=== PATIENT | female | born 1965 | race Caucasian/White ===

== ENCOUNTER 2016-09-10 17:11 | Emergency (ER) | payer OTHER ==
--- NOTE | 2016-09-10 18:36 | ED NURSING NOTES ---
Clinical Report - Nurses [facility] [address] [place] [address] 09/10/2016 17:14 Patient: JACLYN LAMAR TRIAGE Triage time 1722. Acuity: LEVEL 4. Chief Complaint: INJURY TO THE LEFT HIP. ALEX COMA SCORE: Alex Coma Scale: 15- eyes open spontaneously (4); best verbal response- oriented x 4 (5); best motor response- obeys commands (6). --17:28 Diane Gonzales R.N. 17:22 09/10/16. BP: 130/95. HR: 98. RR: 20 (unlabored). O2 saturation: 99% on room air. Temp: 97.7 F (oral). Pain level now: 05/25. --17:28 Diane Gonzales R.N. Weight: 68 kg stated. Height/Length: 66 inches Per Patient. BMI: 24.2. --17:21 Diane Gonzales R.N. Medications Gabapentin Oral. --17:26 Diane Gonzales R.N. Allergies Sulfa Antibiotics. --17:27 Diane Gonzales R.N. History Arrived by private vehicle. Historian: patient. Accompanied by family. Primary physician ([facility] - Terri Baldwin). ( pt c/o laceration to left hip. pt states she fell on to stained glass. pt unsure if glass in laceration.). This occurred today. Occurred at friend's house. She sustained a laceration from a fall (broke stained glass). 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 PAST MEDICAL HX: Tetanus status: up-to-date. SOCIAL HX: Never smoker. Alcohol use. No drug use. ABUSE ASSESSMENT: No report of abuse. FALL RISK ASSESSMENT: Fall risk assessment completed. No fall risk identified. NUTRITIONAL RISK ASSESSMENT: The nutritional risk assessment revealed no deficiencies. FUNCTIONAL ASSESSMENT: Functional assessment: no impairments noted. LEARNING NEEDS ASSESSMENT: The learning needs assessment revealed no barriers. SKIN INTEGRITY ASSESSMENT: Skin integrity risk assessment completed. No skin integrity risk identified. --17:28 Diane Gonzales R.N. ADDITIONAL SURGERIES: 3 c-sections. --17:27 Diane Gonzales R.N. Interventions ID band on patient. To treatment room. --17:28 Diane Gonzales R.N. PHYSICAL ASSESSMENT Ambulatory to room. GENERAL / NEURO / PSYCH: Oriented X 4. Alert. Appears in no acute distress. Appears in pain and anxious. EXTREMITIES: Capillary refill is less than 2 seconds in the extremities. Extremity pulses are within normal limits. Extremities exhibit normal ROM. Normal gait. Left hip: 3.0 cm laceration of the lateral aspect of the hip. SKIN: Skin is warm but moist. She has multiple abrasions on the left hip. --17:34 Diane Gonzales R.N. NURSING PROGRESS NOTES Patient gowned. Two patient identifiers checked. Call light placed in reach. Side rails up x 1. Bed placed in lowest position. Brakes of bed on. Patient ready for evaluation. --17:28 Diane Gonzales R.N. ( 1907: Dressing wound: bacitracin applied and secured with latex free big band-aid). --19:15 Albertina Bolton. DISPOSITION / DISCHARGE Departure time: 1910. Condition at departure: improved. No learning barriers present. Discharge instructions provided and reviewed with the patient. Patient verbalized understanding. Written instructions provided in Nauruan. The patient was discharged by the physician fish hatchery assistant. She was discharged home and accompanied by middle school band teacher. She left the Emergency Department ambulatory and via private vehicle. Embroidery Operator driving. Medication list reviewed and validated with the patient. --19:46 Diane Gonzales R.N. 19:11 09/10/16. BP: 108/67. HR: 86. RR: 18 (unlabored). O2 saturation: 99% on room air. Temp: deferred. Pain level now: 05/25. --19:46 Diane Gonzales R.N. Locked/Released at 09/10/2016 19:46 by Diane Gonzales R.N.
--- NOTE | 2016-09-10 18:36 | ED CLINICAL REPORT ---
Clinical Report - Physicians/Mid Levels [facility] [address] [place] [address] 09/10/2016 17:14 [id number] Time Seen: 19:10 Sep 10 2016. Arrived- By private vehicle. Historian- patient. HISTORY OF PRESENT ILLNESS Chief Complaint: Injury to right leg. The injury happened last night. Occurred at home. The patient sustained a crush injury. Patient is experiencing mild pain. Patient denies injury to the head or neck. (bout 15 hours prior to arrival, patient reports stumbling and falling onto stained glass. Patient reports no prior injuries of the left thigh. Reports she has been ambulatory. Denies any bleeding from the area.). REVIEW OF SYSTEMS The patient has no pain on weight bearing. All systems otherwise negative, except as recorded above. PAST HISTORY The patient has had a prior injury to the same area. Tetanus immunization status is up-to-date. SOCIAL HISTORY Never smoker. Alcohol use. No drug use. ADDITIONAL NOTES The nursing notes have been reviewed. PHYSICAL EXAM Vital Signs: 09/10/2016 17:22 BP: 130/95. HR: 98. RR: 20. O2 saturation: 99%. Temp: 97.7 F. Pain level now: 2/10. Head: Head atraumatic. ENT: Ears normal. CVS: Normal heart rate and rhythm. Heart sounds normal. Respiratory: No respiratory distress. Breath sounds normal. No chest wall injury. Abdomen: Soft. Skin: Skin warm. Extremities: Left hip. No tenderness or laceration. Left thigh: mild tenderness and 3.0 cm laceration located in the lateral aspect of mid thigh. SEE LACERATION PROCEDURE NOTE #1. Neurovascular intact distally. No ecchymosis, puncture wound, foreign body or deformity. Left knee. No tenderness or swelling. Lower extremity exam otherwise negative. Gait: Normal gait. Neuro, Vascular and Tendons: Vascular status intact. Capillary refill not prolonged. Motor intact. No functional tendon deficit. Neuro: Oriented X 3. PROGRESS AND PROCEDURES Laceration Repair: Time: 2016. Location: right thigh. Time-out completed immediately before the procedure. Length: 3. Complexity: simple (local anesthesia used and sutured). Wound depth/shape- curved and involving fascia. Wound is clean. No sensory deficit distally. Local anesthesia provided using 1% lidocaine with epi. Wound explored and cleansed. Subcutaneous closure: interrupted 4-0 (5 sutures). Post-procedure: she is stable and there are no complications. Bleeding is controlled and neuro-vascular status is intact distal to the wound. Dressing applied. Course of Care: Patient with laceration full-thickness curved in nature that still appears well despite being sustained yesterday. Patient with no fevers or drainage or erythema surrounding the laceration. Patient stable. Tolerated procedure well. Patient is stable. Disposition: Discharged. Condition: good. CLINICAL IMPRESSION Single deep laceration to the left lower leg.Treatment of laceration not delayed. No infection or foreign body present. INSTRUCTIONS Apply ice. Protect wound and keep wound area clean. Apply bacitracin twice daily. Sutures should be removed in ten days. OTC Medications: Take OTC medications according to label instructions. Available over the counter. Acetaminophen (available over the counter): take according to label instructions. Motrin (available over the counter): take according to label instructions. Follow-up: Follow up with your doctor in ten days. (Electronically signed by Mial Gordillo P.A.-C 09/10/2016 19:44)
--- NOTE | 2016-09-10 18:36 | ED CLINICAL REPORT ---
Clinical Report - Physicians/Mid Levels [facility] [address] [place] [address] 09/10/2016 17:14 [id number] Time Seen: 19:10 Sep 10 2016. Arrived- By private vehicle. Historian- patient. HISTORY OF PRESENT ILLNESS Chief Complaint: Injury to right leg. The injury happened last night. Occurred at home. The patient sustained a crush injury. Patient is experiencing mild pain. Patient denies injury to the head or neck. (bout 15 hours prior to arrival, patient reports stumbling and falling onto stained glass. Patient reports no prior injuries of the left thigh. Reports she has been ambulatory. Denies any bleeding from the area.). REVIEW OF SYSTEMS The patient has no pain on weight bearing. All systems otherwise negative, except as recorded above. PAST HISTORY The patient has had a prior injury to the same area. Tetanus immunization status is up-to-date. SOCIAL HISTORY Never smoker. Alcohol use. No drug use. ADDITIONAL NOTES The nursing notes have been reviewed. PHYSICAL EXAM Vital Signs: 09/10/2016 17:22 BP: 130/95. HR: 98. RR: 20. O2 saturation: 99%. Temp: 97.7 F. Pain level now: 2/10. Head: Head atraumatic. ENT: Ears normal. CVS: Normal heart rate and rhythm. Heart sounds normal. Respiratory: No respiratory distress. Breath sounds normal. No chest wall injury. Abdomen: Soft. Skin: Skin warm. Extremities: Left hip. No tenderness or laceration. Left thigh: mild tenderness and 3.0 cm laceration located in the lateral aspect of mid thigh. SEE LACERATION PROCEDURE NOTE #1. Neurovascular intact distally. No ecchymosis, puncture wound, foreign body or deformity. Left knee. No tenderness or swelling. Lower extremity exam otherwise negative. Gait: Normal gait. Neuro, Vascular and Tendons: Vascular status intact. Capillary refill not prolonged. Motor intact. No functional tendon deficit. Neuro: Oriented X 3. PROGRESS AND PROCEDURES Laceration Repair: Time: 2016. Location: right thigh. Time-out completed immediately before the procedure. Length: 3. Complexity: simple (local anesthesia used and sutured). Wound depth/shape- curved and involving fascia. Wound is clean. No sensory deficit distally. Local anesthesia provided using 1% lidocaine with epi. Wound explored and cleansed. Subcutaneous closure: interrupted 4-0 (5 sutures). Post-procedure: she is stable and there are no complications. Bleeding is controlled and neuro-vascular status is intact distal to the wound. Dressing applied. Course of Care: Patient with laceration full-thickness curved in nature that still appears well despite being sustained yesterday. Patient with no fevers or drainage or erythema surrounding the laceration. Patient stable. Tolerated procedure well. Patient is stable. Disposition: Discharged. Condition: good. CLINICAL IMPRESSION Single deep laceration to the left lower leg.Treatment of laceration not delayed. No infection or foreign body present. INSTRUCTIONS Apply ice. Protect wound and keep wound area clean. Apply bacitracin twice daily. Sutures should be removed in ten days. OTC Medications: Take OTC medications according to label instructions. Available over the counter. Acetaminophen (available over the counter): take according to label instructions. Motrin (available over the counter): take according to label instructions. Follow-up: Follow up with your doctor in ten days. (Electronically signed by Mila Gordillo P.A.-C 09/10/2016 19:44)
--- NOTE | 2016-09-10 18:36 | ED NURSING NOTES ---
Clinical Report - Nurses [facility] [address] [place] [address] 09/10/2016 17:14 Patient: JACLYN LAMAR TRIAGE Triage time 1722. Acuity: LEVEL 4. Chief Complaint: INJURY TO THE LEFT HIP. ALEX COMA SCORE: Alex Coma Scale: 15- eyes open spontaneously (4); best verbal response- oriented x 4 (5); best motor response- obeys commands (6). --17:28 Diane Gonzales R.N. 17:22 09/10/16. BP: 130/95. HR: 98. RR: 20 (unlabored). O2 saturation: 99% on room air. Temp: 97.7 F (oral). Pain level now: 05/25. --17:28 Diane Gonzales R.N. Weight: 68 kg stated. Height/Length: 66 inches Per Patient. BMI: 24.2. --17:21 Diane Gonzales R.N. Medications Gabapentin Oral. --17:26 Diane Gonzales R.N. Allergies Sulfa Antibiotics. --17:27 Diane Gonzales R.N. History Arrived by private vehicle. Historian: patient. Accompanied by family. Primary physician ([facility] - Terri Baldwin). ( pt c/o laceration to left hip. pt states she fell on to stained glass. pt unsure if glass in laceration.). This occurred today. Occurred at friend's house. She sustained a laceration from a fall (broke stained glass). 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 PAST MEDICAL HX: Tetanus status: up-to-date. SOCIAL HX: Never smoker. Alcohol use. No drug use. ABUSE ASSESSMENT: No report of abuse. FALL RISK ASSESSMENT: Fall risk assessment completed. No fall risk identified. NUTRITIONAL RISK ASSESSMENT: The nutritional risk assessment revealed no deficiencies. FUNCTIONAL ASSESSMENT: Functional assessment: no impairments noted. LEARNING NEEDS ASSESSMENT: The learning needs assessment revealed no barriers. SKIN INTEGRITY ASSESSMENT: Skin integrity risk assessment completed. No skin integrity risk identified. --17:28 Diane Gonzales R.N. ADDITIONAL SURGERIES: 3 c-sections. --17:27 Diane Gonzales R.N. Interventions ID band on patient. To treatment room. --17:28 Diane Gonzales R.N. PHYSICAL ASSESSMENT Ambulatory to room. GENERAL / NEURO / PSYCH: Oriented X 4. Alert. Appears in no acute distress. Appears in pain and anxious. EXTREMITIES: Capillary refill is less than 2 seconds in the extremities. Extremity pulses are within normal limits. Extremities exhibit normal ROM. Normal gait. Left hip: 3.0 cm laceration of the lateral aspect of the hip. SKIN: Skin is warm but moist. She has multiple abrasions on the left hip. --17:34 Diane Gonzales R.N. NURSING PROGRESS NOTES Patient gowned. Two patient identifiers checked. Call light placed in reach. Side rails up x 1. Bed placed in lowest position. Brakes of bed on. Patient ready for evaluation. --17:28 Diane Gonzales R.N. ( 1907: Dressing wound: bacitracin applied and secured with latex free big band-aid). --19:15 Albertina Bolton. DISPOSITION / DISCHARGE Departure time: 1910. Condition at departure: improved. No learning barriers present. Discharge instructions provided and reviewed with the patient. Patient verbalized understanding. Written instructions provided in Nepalese. The patient was discharged by the physician clinical lab assistant. She was discharged home and accompanied by belt dresser. She left the Emergency Department ambulatory and via private vehicle. Spud Grader driving. Medication list reviewed and validated with the patient. --19:46 Diane Gonzales R.N. 19:11 09/10/16. BP: 108/67. HR: 86. RR: 18 (unlabored). O2 saturation: 99% on room air. Temp: deferred. Pain level now: 05/25. --19:46 Diane Gonzales R.N. Locked/Released at 09/10/2016 19:46 by Diane Gonzales R.N.
--- NOTE | 2016-09-10 19:47 | ED MAR SUMMARY ---
..... Medication Administration Record [facility] [address] [place], [place] [id number] Patient: JACLYN LAMAR Visit ID: [id number] 51y, F Weight: 68.0 kg Height/Length: 66 in BMI: 24.2 ALLERGIES: Sulfa Antibiotics
--- NOTE | 2016-09-10 19:47 | ED MAR SUMMARY ---
..... Medication Administration Record [facility] [address] [place], [place] [id number] Patient: JACLYN LAMAR Visit ID: [id number] 51y, F Weight: 68.0 kg Height/Length: 66 in BMI: 24.2 ALLERGIES: Sulfa Antibiotics
--- NOTE | 2016-09-10 19:47 | ED MED RECONCILIATION SUMMARY ---
Patient: JACLYN LAMAR Medication Reconciliation Report [facility] VisitID: [id number] [address] [place] [address] 51y, F Registration Date/Time: 09/10/2016 Weight: 68.0 kg Height/Length: 66 in. BMI: 24.2 ALLERGIES: Sulfa Antibiotics The patient's Home Medications are listed below: THE FOLLOWING MEDICATIONS NEED TO BE RECONCILED: Gabapentin Oral The source(s) of the original Home Medication information: Not obtained. The following Medications were given to the patient in the Emergency Department: None. The following Medications were prescribed to the patient: Take OTC medications according to label instructions. Available over the counter. -- Mila Gordillo, P.A.-C Acetaminophen (available over the counter): take according to label instructions. -- Mila Gordillo, P.A.-C Motrin (available over the counter): take according to label instructions. -- Mila Gordillo, P.A.-C
--- NOTE | 2016-09-10 19:47 | ED MED RECONCILIATION SUMMARY ---
Patient: JACLYN LAMAR Medication Reconciliation Report [facility] VisitID: [id number] [address] [place] [address] 51y, F Registration Date/Time: 09/10/2016 Weight: 68.0 kg Height/Length: 66 in. BMI: 24.2 ALLERGIES: Sulfa Antibiotics The patient's Home Medications are listed below: THE FOLLOWING MEDICATIONS NEED TO BE RECONCILED: Gabapentin Oral The source(s) of the original Home Medication information: Not obtained. The following Medications were given to the patient in the Emergency Department: None. The following Medications were prescribed to the patient: Take OTC medications according to label instructions. Available over the counter. -- Mila Gordillo, P.A.-C Acetaminophen (available over the counter): take according to label instructions. -- Mila Gordillo, P.A.-C Motrin (available over the counter): take according to label instructions. -- Mila Gordillo, P.A.-C
--- NOTE | 2016-09-10 19:47 | ED DISCHARGE INSTRUCTIONS ---
Patient: JACLYN LAMAR General Instructions [facility] VisitID: [id number] [address] [place] [address] 51y, F Registration Date/Time: 09/10/2016 Single deep laceration to the left lower leg.Treatment of laceration not delayed. No infection or foreign body present. INSTRUCTIONS Apply ice. Protect wound and keep wound area clean. Apply bacitracin twice daily. Sutures should be removed in ten days. OTC Medications: Take OTC medications according to label instructions. Available over the counter. Acetaminophen (available over the counter): take according to label instructions. Motrin (available over the counter): take according to label instructions. Follow-up: Follow up with your doctor in ten days. ADDITIONAL INFORMATION Laceration, Extremity (Sutures, [place], Or Tape) A laceration is a cut through the skin. This will usually require stitches (sutures) or jason if it is deep. Minor cuts may be treated with surgical tape closures. Home care The following guidelines will help you care for your laceration at home: Keep the wound clean and dry. If a bandage was applied and it becomes wet or dirty, replace it. Otherwise, leave it in place for the first 24 hours, then change it once a day or as directed. If stitches or jason were used, clean the wound daily: After removing the bandage, wash the area with soap and water. Use a wet cotton swab to loosen and remove any blood or crust that forms. After cleaning, keep the wound clean and dry. Talk with your doctor before applying any antibiotic ointment to the wound. Reapply the bandage. You may remove the bandage to shower as usual after the first 24 hours, but do not soak the area in water (no swimming) until the stitches or jason are removed. If surgical tape closures were used, keep the area clean and dry. If it becomes wet, blot it dry with a towel. The doctor may prescribe an antibiotic cream or ointment to prevent infection. Do not stop taking this medication until you have finished the prescribed course or the doctor tells you to stop. The doctor may also prescribe medications for pain. Follow the doctors instructions for taking these medications. If you have chronic liver or kidney disease or ever had a stomach ulcer or GI bleeding, talk with your doctor before using these medicines. Follow-up care Follow up with your health care provider. Most skin wounds heal within ten days. However, an infection may sometimes occur despite proper treatment. Therefore, check the wound daily for the signs of infection listed below. Stitches and jason should be removed within 714 days. If surgical tape closures were used, you may remove them after 10 days, if they have not fallen off by then. Notify your doctor if you notice persistent numbness or weakness in the injured extremity. (Note:A radiologist will review any X-rays that were taken. We will notify you of any new findings that may affect your care.) When to seek medical care Get prompt medical attention if any of these occur: Increasing pain in the wound Redness, swelling, or pus coming from the wound Fever of 100.4F (38C) or higher, or as directed by your health care provider If stitches or jason come apart or fall out before your next appointment If the surgical tape closures fall off within seven days, or the wound edges re-open Bleeding not controlled by direct pressure Laceration: Will There Be A Scar? A laceration is a cut through one or more layers of the skin. The goal of emergency treatment is to clean the wound and close it to prevent infection, control bleeding and speed healing. Cuts heal because the body is able to repair the skin by "sealing" the edges together with collagen, a kind of "skin cement." How deep your cut is, its location on your body, your age and the way your skin heals all determine how visible the final scar will be. Some persons tend to heal with more scar tissue than others. This cut will probably heal similar to other cuts you have had in the past. What You Can Do: There are a few simple things that you can do to limit the amount of scar that forms: 1) PREVENT INFECTION: An infected wound makes a bigger scar. Keep the wound clean and dry. Change the dressing and apply any ointment/cream as directed. 2) MASSAGE THE WOUND:After the stitches have been removed: Use a moisturizing cream or lotion containing Aloe or Vitamin E Oil and gently massage the skin around the wound with your fingertips (wash your hands first!). Do this twice a day for the first two weeks, then once a day for a month. This will increase the flow of oxygen and blood to the wound and prevent excess scar tissue from building up. 3) AVOID SUN EXPOSURE: During the first six months, avoid sun exposure since the scar may rossi a much darker color than the skin around it. When in the sun, use SPF #50 (or greater) sun block on the scar, or cover the area with a hat or clothing. What To Expect: -- The cut will be sealed within 2 days and will be strong within 5-10 days. However, it will take at least SIX MONTHS for it to be fully healed. -- During the FIRST THREE MONTHS, you may notice the scar line getting more red or purple in color. The scar may become raised. The skin around the wound may feel thick and lumpy. -- During the FOURTH TO SIXTH MONTHS, this process begins to reverse. The red and purple color will fade, the scar line flattens, and the skin around it feels more normal. -- In most cases, the way the scar line looks after six months is the way it will remain, although there may be some continued improvement up to one year after the injury. Is There Anything Else That Can Be Done? If you do not like the way the scar looks after six months, a plastic surgeon may be able to perform a "scar revision." If you have any questions or problems as your wound heals, contact your doctor or this facility. We will be glad to assist you. You have been given the following additional information: Laceration, Extrem (Suture, Staple, Or Tape) Laceration, How To Minimize Scar (Electronically signed by Mila Gordillo P.A.-C 09/10/2016 19:44)
== END 2016-09-10 19:11 | disposition home or self-care (01) ==
LOC: ED SRH 17:11
DX: S71.111A Laceration without foreign body, right thigh, initial encounter (principal); W01.110A Fall on same level from slipping, tripping and stumbling with subsequent striking against sharp glass, initial encounter; Y92.009 Unspecified place in unspecified non-institutional (private) residence as the place of occurrence of the external cause